=== PATIENT | female | born 1950 | race Caucasian/White ===

== ENCOUNTER 2020-09-15 18:49 | Emergency (ER) | payer MEDICARE ==
--- NOTE | 2020-09-15 20:02 | EDM.PDOC ---
ED HPI GENERAL MEDICAL PROBLEM - General Chief Complaint: Upper Extremity Injury/Pain Stated Complaint: SWOLLEN LT ARM Time Seen by Provider: 09/15/20 19:37 Source of Information: Reports: Patient History Limitations: Reports: No Limitations - History of Present Illness INITIAL COMMENTS - FREE TEXT/NARRATIVE: Patient presents for evaluation of pain and swelling in her left arm near the site of her recent pneumococcal vaccine injection. She received her second dose of Prevnar yesterday, Thursday. Later on, she began to feel uncomfortable at an area distal to the actual injection site. The arm is painful at rest and with movement. The site of the injection looks fine. Over the course of today, she has noticed increased swelling, firmness, pain in the left arm. Depending on the position of the arm, she may get finger tingling. She has noticed some scratchiness in her throat this afternoon and evening and is concerned whether she might be having an asthma flareup from the recent vaccination. She has not used inhalers at any point recently. Onset: Gradual (Over the last 24 hours.) Location: Reports: Upper Extremity, Left Quality: Reports: Ache, Burning Severity: Mild Improves with: Reports: None Worsens with: Reports: Movement Associated Symptoms: Reports: No Other Symptoms Left Upper Arm Pain Score (Numeric/FACES): 8 - Related Data Allergies Allergy/AdvReac Type Severity Reaction Status Date / Time No Known Allergies Allergy Verified 02/18/17 13:33 Home Meds: Home Meds Phyto-B 3 drop SL DAILY 09/15/20 [History] Past Medical History HEENT History: Reports: Cataract Cardiovascular History: Reports: High Cholesterol Respiratory History: Reports: Asthma, Other (See Below) Other Respiratory History: sarcoidosis Gastrointestinal History: Reports: GERD [employer] History: Reports: Musculoskeletal History: Reports: Fracture Neurological History: Reports: TIA Hematologic History: Reports: Blood Transfusion(s) Dermatologic History: Reports: Psoriasis - Infectious Disease History Infectious Disease History: Reports: Chicken Pox, Measles, Mumps, Shingles - Past Surgical History HEENT Surgical History: Reports: Adenoidectomy, Tonsillectomy Cardiovascular Surgical History: Reports: Other (See Below) Other Cardiovascular Surgeries/Procedures: ASD closure GI Surgical History: Reports: Appendectomy, Colonoscopy Female Surgical History: Reports: Salpingo-Oophorectomy, Tubal Ligation, Other (See Below) Other Female Surgeries/Procedures: only has 1 ovary and fallopian tube Musculoskeletal Surgical History: Reports: Other (See Below) Other Musculoskeletal Surgeries/Procedures:: ankle surgery Social & Family History - Tobacco Use Tobacco Use Status *Q: Never Tobacco User - Caffeine Use Caffeine Use: Reports: Coffee, Tea - Alcohol Use Days Per Week of Alcohol Use: 7 Number of Drinks Per Day: 1 Total Drinks Per Week: 7 - Recreational Drug Use Recreational Drug Use: No Review of Systems - Review of Systems Review Of Systems: Comprehensive ROS is negative, except as noted in HPI. ED EXAM, GENERAL - Physical Exam Exam: See Below Free Text/Narrative:: This is a conversant adult female who is an extensive historian, interviewed in room 11. Exam Limited By: No Limitations General Appearance: Alert, Anxious, Mild Distress Respiratory/Chest: No Respiratory Distress, Lungs Clear, Normal Breath Sounds Extremities: Other (There is pain on the medial aspect of the left arm in its distal half. The patient has flexed her bicep and that area is tender but even with the elbow fully extended there is some tenderness and fullness along the bicep region. No redness. No crepitus. No restriction of range of motion. The injection site described earlier is normal in appearance.) Course - Vital Signs Last Recorded V/S: Last Vital Signs Temp 37.2 C 09/15/20 19:00 Pulse 82 09/15/20 19:00 Resp 16 09/15/20 19:00 BP 147/74 H 09/15/20 19:00 Pulse Ox 97 09/15/20 19:00 - Re-Assessments/Exams Free Text/Narrative Re-Assessment/Exam: 09/15/20 20:46 Her lungs are clear and I do not hear any wheezing or asthma exacerbation. As we discussed things further, she also mentioned that she has been busy today doing multiple chores at home including shoveling snow and lifting snow with the left arm. In the context of a recent immunization in the same arm, is not unexpected that she would have pain. I recommend cold packs 20 minutes off and on to the arm along with 440 mg of Aleve twice a day. She could use 12.5 or 25 mg of Benadryl with each Aleve dose. She should try to keep the elbow extended is much as possible. I expect the symptoms to gradually resolve over the next several days. We discussed having her do all of the chores at home until she feels better! Departure - Departure Time of Disposition: 20:02 Disposition: Home, Self-Care 01 Clinical Impression: Hematoma - Discharge Information Instructions: RICE Therapy for Routine Care of Injuries Referrals: Julia Ramirez PA [Primary Care Provider] - Forms: ED Department Discharge Additional Instructions: Apply ice packs to the painful area of the arm 20 minutes off and on as much as possible in the next 24 hours. When resting, keep the elbow straight out. Avoid lifting things that involves flexing the elbow. Use two naproxen 220 mg (440 mg total) tablets twice daily for the next 5 days. You could also add 12.5 or 25 mg of Benadryl with each of the naproxen administrations. Symptoms should gradually improve over the next few days. Return to ER if feeling worse. Sepsis Event Note (ED) - Evaluation Sepsis Screening Result: No Definite Risk - Focused Exam Vital Signs: Vital Signs Temp Pulse Resp BP Pulse Ox 09/15/20 19:00 37.2 C 82 16 147/74 H 97
== END 2020-09-15 20:15 | disposition home or self-care (01) ==
LOC: JP.ED 18:49
DX: T88.1XXA Other complications following immunization, not elsewhere classified, initial encounter (principal); J45.909 Unspecified asthma, uncomplicated; Z90.49 Acquired absence of other specified parts of digestive tract; Z98.51 Tubal ligation status
CPT/HCPCS: 99282; 99283

== ENCOUNTER 2022-09-26 19:18 | Emergency (ER) | payer MEDICARE | END 2022-09-26 20:45 | disposition home or self-care (01) | LOC: JP.ED 19:18 | DX: I45.9 Conduction disorder, unspecified (principal); J45.909 Unspecified asthma, uncomplicated | CPT/HCPCS: 99283 ==

== ENCOUNTER 2023-02-15 08:42 | Emergency (ER) | payer MEDICARE ==
[2023-02-15 09:45] LABS: HEMATOCRIT 35.1 % (34.3-46.0); HEMOGLOBIN 11.9 g/dL (11.2-15.5); MEAN CORPUSCULAR HEMOGLOBIN 29.8 pg (31.6-35.5); MEAN CORPUSCULAR HGB CONC 33.9 g/dL (31.6-35.5); MEAN CORPUSCULAR VOLUME 87.8 fL (81.4-99.0)
[2023-02-15 09:59] LABS: APPEARANCE,URINE CLEAR (CLEAR); BILIRUBIN,URINE NEGATIVE (NEGATIVE); COLOR,URINE YELLOW (YELLOW); GLUCOSE,URINE NEGATIVE (NEGATIVE); KETONES,URINE NEGATIVE (NEGATIVE); LEUKOCYTE ESTERASE,URINE NEGATIVE (NEGATIVE); NITRITE,URINE NEGATIVE (NEGATIVE); OCCULT BLOOD,URINE NEGATIVE (NEGATIVE); PROTEIN,URINE NEGATIVE (NEGATIVE); UROBILINOGEN,URINE 0.2 EU/dL (0.2-1.0)
[2023-02-15 10:05] LABS: ALANINE AMINOTRANSFERASE,ALT 33 U/L (12-78); ALBUMIN 3.6 g/dL (3.4-5.0); ALKALINE PHOSPHATASE 74 U/L (46-116); ASPARTATE AMNIOTRANSFERASE,AST 28 U/L (15-37); BILIRUBIN TOTAL 0.4 mg/dL (0.2-1.0); BLOOD UREA NITROGEN,BUN 22 mg/dL (7-18); CALCIUM 8.7 mg/dL (8.5-10.1); CARBON DIOXIDE,CO2 28 mmol/L (21-32); CHLORIDE,CL 100 mmol/L (100-108); CREATININE 0.8 mg/dL (0.6-1.0); EST CRCL DRUG DOSING (CG) 51.01 mL/min; ESTIMATED GFR 79 mL/min (>60); GLUCOSE RANDOM 102 mg/dL (74-106); POTASSIUM,K 4.1 mmol/L (3.6-5.2); PROTEIN TOTAL,TP 7.2 g/dL (6.4-8.2); SODIUM,NA 136 mmol/L (140-148)
[2023-02-15 10:06] LABS: AMORPHOUS SEDIMENT,URINE NOT SEEN; BACTERIA,URINE FEW; EPITHELIAL CELLS,URINE MODERATE; MUCUS,URINE NOT SEEN; RBC,URINE 0-5 (0-5); WBC,URINE 0-5 (0-5)
[2023-02-15 10:08] LABS: ANION GAP 12.1 mmol/L (5.0-14.0)
== END 2023-02-15 12:25 | disposition home or self-care (01) ==
LOC: JP.ED 08:42
DX: R10.30 Lower abdominal pain, unspecified (principal); J45.909 Unspecified asthma, uncomplicated
CPT/HCPCS: 36415; 74176; 80053; 81001; 83605; 84145; 85027; 99284

== ENCOUNTER 2023-11-23 09:30 | Day surgery (SDC) | payer MEDICARE ==
[2023-11-23] MEDS: Lactated Ringers 1,000 ML IV SCH (10:38)
[2023-11-23] MEDS ORDERED: Propofol 200 MG/20 ML SDV ONE (10:53)
[2023-11-23] MEDS ORDERED: Midazolam 1 MG/ML 2 ML SDV ONE (10:53)
[2023-11-23] MEDS ORDERED: fentaNYL 50 MCG/ML SDV ONE (10:53)
== END 2023-11-23 13:06 | disposition home or self-care (01) ==
LOC: JP.SDS 09:30
PROVIDERS: ATTEND Student in an Organized Health Care Education/Training Program
DX: Z12.11 Encounter for screening for malignant neoplasm of colon (principal); K57.30 Diverticulosis of large intestine without perforation or abscess without bleeding; E78.5 Hyperlipidemia, unspecified; M54.50 Low back pain, unspecified; R10.2 Pelvic and perineal pain
CPT/HCPCS: G0121; J2250; J2704; J3010; J7120